=== PATIENT | female | born 1985 | race African-American/Black ===

== ENCOUNTER 2017-11-11 20:37 | Emergency (ER) | payer SELFPAY ==
[~2017-11-11] VITALS: Ht 165.1 cm; Wt 74.8 kg
[2017-11-11 21:10] VITALS: BP 120/82
[2017-11-11] MEDS ORDERED: IBUPROFEN600 MG ORAL (22:21)
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
[2017-11-11 22:30] VITALS: BP 122/79
[2017-11-11] MEDS ORDERED: Lidocaine 1% MPF 10mg/ml 5ml INJ ONE (22:30)
[2017-11-11] MEDS ORDERED: Azithromycin 250mg tab ORAL ONE (22:30)
== END 2017-11-11 22:30 | disposition home or self-care (01) ==
LOC: EMR 22:15
DX: A54.03 Gonococcal cervicitis, unspecified (principal)
CPT/HCPCS: 96372; 99284; J0696